=== PATIENT | female | born 1935 | race Caucasian/White ===

== ENCOUNTER → 2020-06-20 13:38 | Outpatient (BNVA) | payer MEDICARE, MEDICAID, SELFPAY | PROVIDERS: PCP Internal Medicine; Referring Provider Internal Medicine; Visit Provider Internal Medicine | DX: J44.9 Chronic obstructive pulmonary disease, unspecified (principal); R09.02 Hypoxemia | CPT/HCPCS: 99213 ==

== ENCOUNTER 2020-08-15 00:25 | Emergency (ER) | payer MEDICARE, MEDICAID, SELFPAY ==
[2020-08-15] VITALS (7 sets, daily range): BP systolic 102–127; BP diastolic 56–92; PULSE 73–80; RESP 16–22; TEMP 37.1; O2SAT 90–100; BMI 26.7
--- NOTE | 2020-08-15 00:40 | ED.SOB ---
HPI - SOB/Dyspnea General Chief Complaint: Abdominal Pain Stated Complaint: diff breathing Time Seen by Provider: 08/15/20 00:39 Source: patient and other ( rehab facility) Mode of arrival: EMS History of Present Illness HPI Narrative: This is an 84-year-old female who is brought in from [facility] for abdominal pain for 3 days, patient is COVID positive and is currently undergoing treatment for that. Patient states she is having a lot of the abdominal pain and as nursing was attempting to check rectal temperature she was noted to have melena. collateral information obtained from the healthcare proxy who states that yesterday patient had a large melanotic stool and was having abdominal pain at that time but refused transportation to the hospital. She states that patient was on DVT prophylaxis with subcutaneous heparin which was discontinued yesterday. Related Data Home Medications Medication Instructions Recorded Confirmed amlodipine 5 mg tablet 5 mg PO DAILY 06/10/20 08/15/20 fluticasone propionate 115 2 puff INHALATION BID 06/10/20 08/15/20 mcg-salmeterol 21 mcg/actuation HFA inhaler levothyroxine 50 mcg tablet 50 mcg PO DAILY 06/10/20 08/15/20 losartan 50 mg tablet 50 mg PO DAILY 06/10/20 08/15/20 mirtazapine 15 mg tablet 15 mg PO BEDTIME 06/10/20 08/15/20 montelukast 10 mg tablet 10 mg PO BEDTIME 06/10/20 08/15/20 Lactobacillus acidophilus 1 cap PO BEDTIME 08/15/20 08/15/20 [Acidophilus] albuterol sulfate 2.5 mg INHALATION Q4H PRN 08/15/20 08/15/20 artificial tears solution 1 drp OPHTHALMIC (EYE) QID PRN 08/15/20 08/15/20 aspirin [Aspirin Child] 81 mg PO DAILY 08/15/20 08/15/20 azithromycin [Zithromax] 250 mg PO DAILY 08/15/20 08/15/20 dexamethasone 6 mg PO DAILY 08/15/20 08/15/20 ipratropium bromide 2.5 ml INHALATION Q4H PRN 08/15/20 08/15/20 ipratropium bromide [Atrovent HFA] 2 puff INHALATION QID PRN 08/15/20 08/15/20 melatonin 3 mg PO BEDTIME PRN 08/15/20 08/15/20 trazodone 25 mg PO Q6H PRN 08/15/20 08/15/20 umeclidinium [Incruse Ellipta] 1 inh INHALATION BEDTIME 08/15/20 08/15/20 Previous Rx's Medication Instructions Recorded hydromorphone (PF) [Dilaudid (PF)] 0.5 mg IM Q4H PRN #12 ml 08/15/20 fxmvonqjeyim-mejqdfgbss-zklnrt 3.375 g IV Q6H 7 Days #1575 ml 08/15/20 [Zosyn in dextrose (iso-osm)] Allergies Allergy/AdvReac Type Severity Reaction Status Date / Time nitrofurantoin Allergy Mild UNKNOWN Unverified 06/01/20 14:39 [Nitrofurantoin] levofloxacin Allergy Unknown UNKNOWN Verified 06/10/20 12:19 codeine AdvReac Mild HEADACHE Unverified 06/01/20 14:39 [From Tylenol-Codeine #3] oxycodone [From Percocet] AdvReac Unknown DIDN'T Verified 06/10/20 12:19 AGREE WITH HER Review of Systems Review of Systems: Yes Unobtainable due to mental condition PMFSH Past Medical History Source: nursing notes reviewed Medical History Bronchitis COPD (chronic obstructive pulmonary disease) Exercise hypoxemia Hypertension TIA (transient ischemic attack) Urinary tract infection Surgical History (Updated 08/15/20 @ 06:08 by Chavo Hilario MD) History of bladder surgery History of cholecystectomy Social History Social History Smoking Status: Former smoker Advance Directives: No Advance Directives Information Provided: Yes Physical Exam Vital Signs: Vital Signs: Last Vital Signs Temp 98.8 F 08/15/20 04:29 Pulse 75 08/15/20 05:03 Resp 18 08/15/20 05:03 BP 121/62 08/15/20 05:03 Pulse Ox 90 L 08/15/20 05:03 Body Mass Index 26.7 VITAL SIGNS: Reviewed. GENERAL: Well developed, well nourished, moderate distress. HEAD: Normocephalic/atraumatic, EYES: PERRLA, EOMI intact without pain, no nystagmus/pallor/icterus noted EARS: Ext canals without abnormality, TMs non-bulging and non-erythematous NOSE: Nares patent bilateral OROPHARYNX: no oral lesions noted, posterior pharynx clear and non-erythematous without noted tonsillar enlargement/erythema/exudates NECK: Supple, no adenopathy LUNGS: tachypnea, decreased breath sounds bilateral, No adventitious sounds. SpO2<95> CARDIOVASCULAR: Regular rate and rhythm without noted murmurs, no JVD or lower extremity edema. ABDOMEN: Soft, distended, pain on palpation with a noted irreducible umbilical hernia without overlying skin changes. peritoneal.No rigidity. Voluntary guarding. No palpable masses MUSCULOSKELETAL: No tenderness, deformities, or effusions noted on gross inspection. EXTREMITIES: No cyanosis, clubbing or edema. SKIN: Inspection of the skin reveals no rashes, ulcerations, jaundice, pallor, or petechiae. NEUROLOGIC: Alert and oriented x 2. Strength and sensation to light touch were grossly intact x 4. Course Course Course Narrative: This is an 84-year-old female with history and clinical presentation most concerning for likely upper GI bleed and due to abdominal exam suspect either perforation or strangulated hernia. On review of all investigations significant leukocytosis in addition to CT scan findings of free air with free fluid suspected to be associated with possible duodenal / gastric ulcer perforation. Patient received blood cultures, lactic acid, and IV antibiotics, IV fluids. Discussion was held consistently with daughter as well as with patient on decision making regarding interventions as documented below. The final decision was that patient would receive comfort care at the facility. Patient will be discharged with antibiotics as well as pain medication. Reevaluation(s) Reevaluation #1: Left message with daughter, Makenzie Villarreal. Time: 01:00 Reevaluation #2: Makenzie Villarreal called back and confirms abdominal pain, ?dementia. She does not have any further information and is referring us to Nickie Gracia (the other daughter). Time: 01:05 Reevaluation #3: Nickie Gracia called back. Patient was told she was not a surgical candidate regarding the hernia. Just had heparin (DVT prophylaxis) discontinued yesterday after a huge, black stool. She confirms patient is a DNR/DNI. Patient refused hospital yesterday. Time: 01:25 Additional Reevaluation(s): 0415: Your radiology called to report small amount of free air with trace free fluid in Martinez's pouch appears to be concerning for possible duodenum /gastric perforation. This would explain the melena as well. 0425: Patient unsure of what to do and requested that I discuss with her daughter who then recommends that surgery should not be pursued as there is low likelihood of her being able to survive the procedure. However, daughter would like me to inform her mother what her recommendations are but then also ask her how she would like to proceed.Patient states she wants to do anything to live and not be in pain. 0435: I discussed case with Dr. Hilario who will be coming into the hospital to speak with the family as well as the patient. In the meantime 2 units of PRBCs was ordered. MDM - SOB/Dyspnea Lab Data Result diagrams: 08/15/20 01:00 08/15/20 01:00 Labs: Lab Results 08/15/20 08/15/20 08/15/20 Range/Units 01:00 01:00 01:00 WBC 25.0 H (4.8-10.8) X10*3/uL RBC 2.58 L (4.20-5.50) X10*6/uL Hgb 8.4 L (12.0-16.0) g/dl Hct 25.0 L (37-47) % MCV 96.9 (80-98) fL MCH 32.6 (27.0-33.0) pg MCHC 33.6 (31.0-35.0) g/dl RDW 13.2 (11.0-16.0) % Plt Count 318 (160-400) X10*3/uL MPV 10.0 (9.4-12.3) fL Immature Gran % (Auto) Cancelled Neut % (Auto) Cancelled Lymph % (Auto) Cancelled [place] % (Auto) Cancelled Eos % (Auto) Cancelled Baso % (Auto) Cancelled Lymph # (Auto) Cancelled [place] # (Auto) Cancelled Eos # (Auto) Cancelled Baso # (Auto) Cancelled Abs Immat Gran (auto) Cancelled Absolute Neuts (auto) Cancelled Absolute Nucleated RBC 0.340 H (0.0-0.012) X10*3/uL Nucleated RBC % (auto) 1.4 H (0.0-0.2) /100WBC Neutrophils % (Manual) 89 H (45-73) % Band Neutrophils % 1 L (3-5) % Lymphocytes % (Manual) 3 L (20-40) % Metamyelocytes % 1 % Myelocytes % 3 % Promyelocytes % 3 % Abs Neuts (Manual) 22.5 H (2.2-7.9) X10*3/uL Lymphocytes # (Manual) 0.8 (0.6-4.8) X10*3/uL Metamyelocytes # 0.3 X10*3/uL Myelocytes # 0.8 X10*/uL Promyelocytes # 0.8 X10*3/uL Nucleated RBCs 3 H (0-0) /100WBC Platelet Estimate NORMAL (NORMAL) Large Platelets PRESENT Plt Morphology Comment NORMAL RBC Morphology NOTED Polychromasia 1+ Hypochromasia 1+ Acanthocytes (Spur) 1+ PT 12.4 (10.8-13.0) SEC INR 1.0 (0.9-1.1) APTT 18.7 L (24.1-38.0) SEC Sodium 135 (135-145) mmol/L Potassium 5.2 H (3.3-5.1) mmol/l Chloride 102 (96-108) mmol/L Carbon Dioxide 22 (22-29) mmol/L Anion Gap 16 (12-20) BUN 85 H* (9-16) mg/dL Creatinine 1.30 (0.5-1.4) mg/dL Estim Creat Clear Calc 32.2 Estimated GFR 39 Random Glucose 157 H (60-115) mg/dL Lactic Acid (0.5-2.0) mmol/L Calcium 7.3 L (8.4-10.2) mg/dL Total Bilirubin 0.8 (0.0-1.0) mg/dL AST 23 (5-31) U/L ALT 29 (0-31) U/L Alkaline Phosphatase 61 (39-117) U/L Total Protein 5.3 L (6.5-8.0) g/dL Albumin 3.1 L (3.5-5.0) g/dL Urine Color Urine Appearance Urine pH (5.0-8.0) Ur Specific [place] (1.005-1.025) Urine Protein (NEG-TRACE) MG/DL Urine Glucose (UA) (NEG) MG/DL Urine Ketones (NEG) MG/DL Urine Blood (NEG) Urine Nitrite (NEG) Ur Leukocyte Esterase (NEG) Stool Occult Blood (NEG) Blood Type Antibody Screen Crossmatch 08/15/20 08/15/20 08/15/20 Range/Units 01:01 01:01 01:07 WBC (4.8-10.8) X10*3/uL RBC (4.20-5.50) X10*6/uL Hgb (12.0-16.0) g/dl Hct (37-47) % MCV (80-98) fL MCH (27.0-33.0) pg MCHC (31.0-35.0) g/dl RDW (11.0-16.0) % Plt Count (160-400) X10*3/uL MPV (9.4-12.3) fL Immature Gran % (Auto) Neut % (Auto) Lymph % (Auto) [place] % (Auto) Eos % (Auto) Baso % (Auto) Lymph # (Auto) [place] # (Auto) Eos # (Auto) Baso # (Auto) Abs Immat Gran (auto) Absolute Neuts (auto) Absolute Nucleated RBC (0.0-0.012) X10*3/uL Nucleated RBC % (auto) (0.0-0.2) /100WBC Neutrophils % (Manual) (45-73) % Band Neutrophils % (3-5) % Lymphocytes % (Manual) (20-40) % Metamyelocytes % % Myelocytes % % Promyelocytes % % Abs Neuts (Manual) (2.2-7.9) X10*3/uL Lymphocytes # (Manual) (0.6-4.8) X10*3/uL Metamyelocytes # X10*3/uL Myelocytes # X10*/uL Promyelocytes # X10*3/uL Nucleated RBCs (0-0) /100WBC Platelet Estimate (NORMAL) Large Platelets Plt Morphology Comment RBC Morphology Polychromasia Hypochromasia Acanthocytes (Spur) PT (10.8-13.0) SEC INR (0.9-1.1) APTT (24.1-38.0) SEC Sodium (135-145) mmol/L Potassium (3.3-5.1) mmol/l Chloride (96-108) mmol/L Carbon Dioxide (22-29) mmol/L Anion Gap (12-20) BUN (9-16) mg/dL Creatinine (0.5-1.4) mg/dL Estim Creat Clear Calc Estimated GFR Random Glucose (60-115) mg/dL Lactic Acid 2.0 (0.5-2.0) mmol/L Calcium (8.4-10.2) mg/dL Total Bilirubin (0.0-1.0) mg/dL AST (5-31) U/L ALT (0-31) U/L Alkaline Phosphatase (39-117) U/L Total Protein (6.5-8.0) g/dL Albumin (3.5-5.0) g/dL Urine Color Urine Appearance Urine pH (5.0-8.0) Ur Specific Fitzgerald (1.005-1.025) Urine Protein (NEG-TRACE) MG/DL Urine Glucose (UA) (NEG) MG/DL Urine Ketones (NEG) MG/DL Urine Blood (NEG) Urine Nitrite (NEG) Ur Leukocyte Esterase (NEG) Stool Occult Blood POS (NEG) Blood Type AB Positive Antibody Screen NEGATIVE Crossmatch See Detail 08/15/20 Range/Units 04:37 WBC (4.8-10.8) X10*3/uL RBC (4.20-5.50) X10*6/uL Hgb (12.0-16.0) g/dl Hct (37-47) % MCV (80-98) fL MCH (27.0-33.0) pg MCHC (31.0-35.0) g/dl RDW (11.0-16.0) % Plt Count (160-400) X10*3/uL MPV (9.4-12.3) fL Immature Gran % (Auto) Neut % (Auto) Lymph % (Auto) [place] % (Auto) Eos % (Auto) Baso % (Auto) Lymph # (Auto) [place] # (Auto) Eos # (Auto) Baso # (Auto) Abs Immat Gran (auto) Absolute Neuts (auto) Absolute Nucleated RBC (0.0-0.012) X10*3/uL Nucleated RBC % (auto) (0.0-0.2) /100WBC Neutrophils % (Manual) (45-73) % Band Neutrophils % (3-5) % Lymphocytes % (Manual) (20-40) % Metamyelocytes % % Myelocytes % % Promyelocytes % % Abs Neuts (Manual) (2.2-7.9) X10*3/uL Lymphocytes # (Manual) (0.6-4.8) X10*3/uL Metamyelocytes # X10*3/uL Myelocytes # X10*/uL Promyelocytes # X10*3/uL Nucleated RBCs (0-0) /100WBC Platelet Estimate (NORMAL) Large Platelets Plt Morphology Comment RBC Morphology Polychromasia Hypochromasia Acanthocytes (Spur) PT (10.8-13.0) SEC INR (0.9-1.1) APTT (24.1-38.0) SEC Sodium (135-145) mmol/L Potassium (3.3-5.1) mmol/l Chloride (96-108) mmol/L Carbon Dioxide (22-29) mmol/L Anion Gap (12-20) BUN (9-16) mg/dL Creatinine (0.5-1.4) mg/dL Estim Creat Clear Calc Estimated GFR Random Glucose (60-115) mg/dL Lactic Acid (0.5-2.0) mmol/L Calcium (8.4-10.2) mg/dL Total Bilirubin (0.0-1.0) mg/dL AST (5-31) U/L ALT (0-31) U/L Alkaline Phosphatase (39-117) U/L Total Protein (6.5-8.0) g/dL Albumin (3.5-5.0) g/dL Urine Color YELLOW Urine Appearance CLEAR Urine pH 7.0 (5.0-8.0) Ur Specific [place] 1.010 (1.005-1.025) Urine Protein NEG (NEG-TRACE) MG/DL Urine Glucose (UA) NEG (NEG) MG/DL Urine Ketones NEG (NEG) MG/DL Urine Blood NEG (NEG) Urine Nitrite NEG (NEG) Ur Leukocyte Esterase NEG (NEG) Stool Occult Blood (NEG) Blood Type Antibody Screen Crossmatch Discharge Plan Discharge Clinical Impression: Perforation bowel, Severe sepsis, Need for comfort care Patient Disposition: Xfer [facility] Prescriptions: New Zosyn in dextrose (iso-osm) 3.375 gram/50 mL piggyback 3.375 g IV Q6H 7 Days Qty: 1575 RF: 0 Dilaudid (PF) 0.5 mg/0.5 mL syringe 0.5 mg IM Q4H PRN (Reason: pain) Qty: 12 RF: 0 No Action albuterol sulfate 2.5 mg /3 mL (0.083 %) solution for nebulization 2.5 mg inhalation Q4H PRN (Reason: Wheezing) RF: 0 azithromycin [Zithromax] 250 mg Tablet 250 mg PO DAILY RF: 0 dexamethasone 6 mg Tablet 6 mg PO DAILY RF: 0 artificial tears solution Drops 1 drp OPHTHALMIC (EYE) QID PRN (Reason: Dry Eye(S)) RF: 0 melatonin 3 mg Tablet 3 mg PO BEDTIME PRN (Reason: Insomnia) RF: 0 aspirin [Aspirin Child] 81 mg Tablet,Chewable 81 mg PO DAILY RF: 0 Lactobacillus acidophilus [Acidophilus] Capsule 1 cap PO BEDTIME RF: 0 ipratropium bromide 0.02 % Solution 2.5 ml INHALATION Q4H PRN (Reason: Shortness Of Breath Or Wheezing) RF: 0 Atrovent HFA 17 mcg/actuation Hfa Aerosol Inhaler 2 puff INHALATION QID PRN (Reason: Shortness Of Breath Or Wheezing) RF: 0 Incruse Ellipta 62.5 mcg/actuation Blister With Device 1 inh INHALATION BEDTIME RF: 0 trazodone 50 mg Tablet 25 mg PO Q6H PRN (Reason: Agitation) RF: 0 levothyroxine 50 mcg tablet 50 mcg PO DAILY RF: 0 montelukast 10 mg tablet 10 mg PO BEDTIME RF: 0 losartan 50 mg tablet 50 mg PO DAILY RF: 0 mirtazapine 15 mg tablet 15 mg PO BEDTIME RF: 0 amlodipine 5 mg tablet 5 mg PO DAILY RF: 0 Advair HFA 115-21 mcg/actuation HFA aerosol inhaler 2 puff inhalation BID RF: 0 Referrals: Physician,Unknown [Primary Care Provider] - 2 days
--- NOTE | 2020-08-15 00:41 | XR_ITS ---
EXAMINATION: XR CHEST CLINICAL INFORMATION: Shortness of breath COMPARISON: 06/11/2016 TECHNIQUE: Frontal view of the chest was obtained. FINDINGS: Lungs are hyperinflated, suggesting underlying COPD. No focal consolidation is seen. There is nonspecific interstitial prominence at the left lung base which could reflect a degree of underlying chronic lung disease. No evidence of pneumothorax, significant pleural effusion, or overt pulmonary edema. Cardiac size is within normal limits. Calcification is present at the aortic arch. No acute osseous findings are seen. XR/XR chest 1V IMPRESSION: No definite acute findings identified. Suggestion of chronic lung disease.
[2020-08-15] MEDS: Pantoprazole Sodium 40 MG/10 ML VIAL 80 MG IVPUSH (01:16)
[2020-08-15 01:17] LABS: Hemoglobin 8.4 g/dl (12.0-16.0); Mean Corpuscular HGB Conc 33.6 g/dl (31.0-35.0); Mean Corpuscular Hemoglobin 32.6 pg (27.0-33.0); Mean Corpuscular Volume 96.9 fL (80-98); Platelet Count 318 X10*3/uL (160-400); Red Blood Count 2.58 X10*6/uL (4.20-5.50); Red Cell Distribution Width 13.2 % (11.0-16.0)
[2020-08-15 01:24] LABS: OBS Int Ctl Valid YES; OBS1 POS (NEG)
[2020-08-15 01:27] LABS: NRBC Pct Auto 1.4 /100WBC (0.0-0.2)
--- NOTE | 2020-08-15 01:34 | PC.NURSE ---
PT TO ROOM VIA AMBULANCE WITH C/O ABD PAIN WHICH STARTED ON &OFF X 3 DAYS. PT TESTED + FOR COVID X 14 DAYS AGO. PT C/O DYSPNEA. PT STATES I JUST CAN'T BREATHE. PT REPOSITIONED, CLEANED UP AND MD AT BEDSIDE WITH PT.
--- NOTE | 2020-08-15 01:37 | PC.NURSE ---
IV PLACED TO RIGHT WRIST AND LEFT HAND. PT ON 3L NC WITH PO 87%. PT ON NRB AT THIS TIME PER MD'S ORDERS. LABS DRAWN TO LAB ALONG WITH BC X 2. PT MEDICATED PER EMAR. PT C/O ABD PAIN, MD AWARE.
[2020-08-15 01:45] LABS: Alanine Aminotransferase 29 U/L (0-31); Albumin Level 3.1 g/dL (3.5-5.0); Alkaline Phosphatase 61 U/L (39-117); Anion Gap 16 (12-20); Aspartate Amino Transferase 23 U/L (5-31); Bilirubin Total 0.8 mg/dL (0.0-1.0); Blood Urea Nitrogen 85 mg/dL (9-16); Calcium 7.3 mg/dL (8.4-10.2); Carbon Dioxide 22 mmol/L (22-29); Chloride 102 mmol/L (96-108); Creatinine Clr Calc Pharmacy 32.2; Estimated Glomerular Filt Rate 39; Glucose Random 157 mg/dL (60-115); Potassium 5.2 mmol/l (3.3-5.1); Sodium 135 mmol/L (135-145); Total Protein 5.3 g/dL (6.5-8.0)
[2020-08-15] MEDS: cefTRIAXone sodium 1 GM in 0.9 % Sodium Chloride 50 ML IV (01:50)
--- NOTE | 2020-08-15 02:10 | CT_ITS ---
EXAMINATION: CT ABDOMEN AND PELVIS WITH CONTRAST CLINICAL INFORMATION: Abdominal pain, question strangulated hernia COMPARISON: 07/01/2016 TECHNIQUE: Multidetector volumetric images were obtained from the superior aspect of the liver through the pubic symphysis following administration 85 mL of Omnipaque 350 intravenous contrast. Sagittal and coronal reformatted images were obtained on the technologist's workstation. Oral contrast: No This CT examination was performed using dose optimization techniques as appropriate, variously including the following: *Automated exposure control *Adjustment of mA and/or kV according to patient size (this includes techniques or standardized protocols for targeted exams where dose is matched to indication/reason for exam; i.e. extremities or head) *Use of iterative reconstruction technique DLP: 980 mGy-cm FINDINGS: LUNG BASES: Trace pleural effusions. Emphysema at the right lung base. Coronary artery calcifications are present. LIVER, GALLBLADDER, AND BILIARY TREE: The liver is normal in size, shape, and attenuation. No focal hepatic lesion or biliary ductal dilatation is present. Patient is status post cholecystectomy. Trace perihepatic ascites. PANCREAS: There is partial fatty atrophy of the pancreas. SPLEEN: Unremarkable. ADRENAL GLANDS: Unremarkable. KIDNEYS AND URETERS: The kidneys are normal in size, shape, and attenuation. Several hypoattenuating renal lesions are present bilaterally, favoring cysts measuring up to approximately 1.7 cm in diameter. No hydronephrosis, hydroureter, or obstructing calculi seen. No perinephric stranding. BLADDER: Unremarkable. GASTROINTESTINAL TRACT: Multiple foci of intra-abdominal free air are noted, mostly in the upper abdomen, consistent with perforated viscus. Stranding is noted adjacent to the second portion of the duodenum, which has a somewhat thick-walled appearance. There is colonic diverticulosis without diverticulitis. No evidence of bowel obstruction. The appendix is unremarkable. ABDOMINAL WALL: Fat-containing periumbilical hernias noted. LYMPH NODES: Normal. VASCULAR: There are atherosclerotic calcifications along the aorta and common iliac arteries. PELVIC VISCERA: Unremarkable. OSSEOUS STRUCTURES: Degenerative changes are noted in the spine. CT/CT abdomen pelvis w con IMPRESSION: 1. Multiple foci of intra-abdominal free air in the upper abdomen, consistent with perforated viscus. This could be duodenal in origin given the presence of some stranding/inflammatory change along the second portion of the duodenum. Perforated gastric ulcer is also a possibility. 2. Trace perihepatic ascites. 3. Trace pleural effusions. 4. Colonic diverticulosis without convincing diverticulitis. This critical result was discussed with Dr. Ochoa on 08/15/2020 4:12 AM, and it was ascertained that the content and urgency of the report was understood at the time of direct communication.
[2020-08-15] MEDS: metroNIDAZOLE/NS 500 MG/100 ML PIGGYBACK 100 MG IV (02:30)
[2020-08-15] MEDS: fentaNYL citrate/PF 100 MCG/2 ML VIAL 25 MCG IVPUSH ×2 (02:53→04:57)
[2020-08-15 03:17] LABS: Band Neutrophils Percent 1 % (3-5); Lymphocytes Absolute Manual 0.8 X10*3/uL (0.6-4.8); Lymphocytes Percent Manual 3 % (20-40); Metamyelocytes Absolute 0.3 X10*3/uL; Metamyelocytes Percent 1 %; Myelocytes Absolute 0.8 X10*/uL; Myelocytes Percent 3 %; Neutrophils Absolute Manual 22.5 X10*3/uL (2.2-7.9); Neutrophils Percent Manual 89 % (45-73); Nucleated Red Blood Cells 3 /100WBC (0-0); Promyelocytes Absolute 0.8 X10*3/uL; Promyelocytes Percent 3 %
[2020-08-15 03:18] LABS: Polychromasia 1+
[2020-08-15 03:19] LABS: Large Platelet PRESENT; Platelet Estimate NORMAL (NORMAL); Platelet Morphology Comment NORMAL
[2020-08-15 03:20] LABS: Acanthocytes 1+; Hypochromasia 1+
[2020-08-15 03:40] LABS: RBC Morphology NOTED
--- NOTE | 2020-08-15 03:42 | PC.NURSE ---
portable x-ray in room, pt to ct in stretcher. pt tolerated well.
[2020-08-15] MEDS: iohexoL 350 MG/ML 100 ML INFUS..BTL 85 ML IV (03:46)
--- NOTE | 2020-08-15 04:00 | PC.NURSE ---
PT REPOSITIONED. PT REMAINS ON MONITOR WITH HR 76. PT C/O MID TO LOWER ABD PAIN. MD AWARE. PT DETERMINED TO CONTINUE TO LAY ON HER SIDE. PT UNABLE TO LAY ON HER BACK D/T PAIN. PT ON 4L NC WITH PO RANGING FROM 88%-90%. SPEAKING WITH FAMILY ON PHONE FOR UPDATE. WILL CONTINUE TO MONITOR PT.
--- NOTE | 2020-08-15 04:05 | PC.NURSE ---
PT RESTLESS IN STRETCHER AND C/O PAIN, PT RETURNS TO NRB WITH PO 99% PER MD'S REQUEST. PT REPOSITIONED. WILL CONTINUE TO MONITOR PT.
[2020-08-15] MEDS: 0.9 % Sodium Chloride 1,000 ML 1000 ML IV (04:10)
[2020-08-15 04:46] LABS: Prothrombin Time 12.4 SEC (10.8-13.0)
[2020-08-15 04:46] LABS: Appearance Urine CLEAR; Glucose Urine UA NEG (NEG); Leukocyte Esterase Urine NEG (NEG); Nitrite Urine NEG (NEG); Urine Blood NEG (NEG); Urine Ketones NEG (NEG); Urine Protein NEG (NEG-TRACE)
[2020-08-15 04:47] LABS: Color Urine YELLOW
[2020-08-15 04:52] LABS: Partial Thromboplastin Time 18.7 SEC (24.1-38.0)
--- NOTE | 2020-08-15 05:01 | PC.NURSE ---
JAMES 16F INSERTED W/O DIFFICULTY, SAMPLE SENT TO LAB FOR EVAL. PT C/O PAIN. PT MEDICATED PER EMAR.
[2020-08-15] MEDS: HYDROmorphone HCl 0.5 MG/0.5 ML SYRINGE IVPUSH (05:48)
--- NOTE | 2020-08-15 05:59 | P.CONGS_ITS ---
History of Present Illness Consult details Consult date: 08/15/20 Narrative: 84F with mulitple medical problems including dementia, COPD, brought to the ED early this morning because of melanotic stools and abdominal pain. The patient some simple questions and says she has been having abdominal pain. According to the ED staff, the patient was noted to pass very dark stools in large amounts yesterday. She lives in a SNF and refused to be trasnferred to the ED yesterday. She was brought this morning for complaints of abdominal pain. There is no documented vomitting. The patient has been in a SNF for many years now because of declining health. She requires assistance with activities of daily living, and according to the daughter, has been worsening with regards to overall health with progressive weakness. A CT scan was done showing small amounts of free air in the upper abdomen. I was therefore consulted. She had been diagnosed to be COVID positive last . Review of Systems Constitutional: Constitutional: Reports poor appetite Cardiovascular: Cardiovascular: Reports dyspnea Respiratory: Respiratory: Reports cough and Reports dyspnea Gastrointestinal: Gastrointestinal: Reports abdominal pain and Reports melena Neurologic: Reports memory loss Psychiatric: Psychiatric: Reports memory loss [facility] Past Medical History Medical History (Updated 08/15/20 @ 06:12 by Chavo Hilario MD) Bronchitis COPD (chronic obstructive pulmonary disease) COVID-19 Exercise hypoxemia Hypertension Perforated viscus TIA (transient ischemic attack) Urinary tract infection Vascular dementia Surgical History Surgical History History of bladder surgery History of cholecystectomy Social History Social History Smoking Status: Former smoker Advance Directives: No Advance Directives Information Provided: Yes Meds Allergies Allergy/AdvReac Type Severity Reaction Status Date / Time nitrofurantoin Allergy Mild UNKNOWN Unverified 06/01/20 14:39 [Nitrofurantoin] levofloxacin Allergy Unknown UNKNOWN Verified 06/10/20 12:19 codeine AdvReac Mild HEADACHE Unverified 06/01/20 14:39 [From Tylenol-Codeine #3] oxycodone [From Percocet] AdvReac Unknown DIDN'T Verified 06/10/20 12:19 AGREE WITH HER Home Medications Medication Instructions Recorded Confirmed Type amlodipine 5 mg tablet 5 mg PO DAILY 06/10/20 08/15/20 History fluticasone propionate 115 2 puff INHALATION BID 06/10/20 08/15/20 History mcg-salmeterol 21 mcg/actuation HFA inhaler levothyroxine 50 mcg tablet 50 mcg PO DAILY 06/10/20 08/15/20 History losartan 50 mg tablet 50 mg PO DAILY 06/10/20 08/15/20 History mirtazapine 15 mg tablet 15 mg PO BEDTIME 06/10/20 08/15/20 History montelukast 10 mg tablet 10 mg PO BEDTIME 06/10/20 08/15/20 History Lactobacillus acidophilus 1 cap PO BEDTIME 08/15/20 08/15/20 History [Acidophilus] albuterol sulfate 2.5 mg INHALATION Q4H PRN 08/15/20 08/15/20 History artificial tears solution 1 drp OPHTHALMIC (EYE) QID PRN 08/15/20 08/15/20 History aspirin [Aspirin Child] 81 mg PO DAILY 08/15/20 08/15/20 History azithromycin [Zithromax] 250 mg PO DAILY 08/15/20 08/15/20 History dexamethasone 6 mg PO DAILY 08/15/20 08/15/20 History ipratropium bromide 2.5 ml INHALATION Q4H PRN 08/15/20 08/15/20 History ipratropium bromide [Atrovent HFA] 2 puff INHALATION QID PRN 08/15/20 08/15/20 History melatonin 3 mg PO BEDTIME PRN 08/15/20 08/15/20 History trazodone 25 mg PO Q6H PRN 08/15/20 08/15/20 History umeclidinium [Incruse Ellipta] 1 inh INHALATION BEDTIME 08/15/20 08/15/20 History Physical Exam Vital Signs: Vital Signs: Last Vital Signs Temp 98.8 F 08/15/20 04:29 Pulse 75 08/15/20 05:03 Resp 18 08/15/20 05:03 BP 121/62 08/15/20 05:03 Pulse Ox 90 L 08/15/20 05:03 Body Mass Index 26.7 Const: Other: appears significantly short of breath, requiring a mask for O2 Resp: Effort & Inspection: respiratory distress Cardio: Rate: tachycardic Rhythm: regular rhythm GI: Other: diffusely tender with guarding and rebound Results Labs Result diagrams: 08/15/20 01:00 08/15/20 01:00 Labs: Abnormal lab results 08/15/20 08/15/20 08/15/20 Range/Units 01:00 01:00 01:00 WBC 25.0 H (4.8-10.8) X10*3/uL RBC 2.58 L (4.20-5.50) X10*6/uL Hgb 8.4 L (12.0-16.0) g/dl Hct 25.0 L (37-47) % Absolute Nucleated RBC 0.340 H (0.0-0.012) X10*3/uL Nucleated RBC % (auto) 1.4 H (0.0-0.2) /100WBC Neutrophils % (Manual) 89 H (45-73) % Band Neutrophils % 1 L (3-5) % Lymphocytes % (Manual) 3 L (20-40) % Abs Neuts (Manual) 22.5 H (2.2-7.9) X10*3/uL Nucleated RBCs 3 H (0-0) /100WBC APTT 18.7 L (24.1-38.0) SEC Potassium 5.2 H (3.3-5.1) mmol/l BUN 85 H* (9-16) mg/dL Random Glucose 157 H (60-115) mg/dL Calcium 7.3 L (8.4-10.2) mg/dL Total Protein 5.3 L (6.5-8.0) g/dL Albumin 3.1 L (3.5-5.0) g/dL Crossmatch 08/15/20 Range/Units 01:01 WBC (4.8-10.8) X10*3/uL RBC (4.20-5.50) X10*6/uL Hgb (12.0-16.0) g/dl Hct (37-47) % Absolute Nucleated RBC (0.0-0.012) X10*3/uL Nucleated RBC % (auto) (0.0-0.2) /100WBC Neutrophils % (Manual) (45-73) % Band Neutrophils % (3-5) % Lymphocytes % (Manual) (20-40) % Abs Neuts (Manual) (2.2-7.9) X10*3/uL Nucleated RBCs (0-0) /100WBC APTT (24.1-38.0) SEC Potassium (3.3-5.1) mmol/l BUN (9-16) mg/dL Random Glucose (60-115) mg/dL Calcium (8.4-10.2) mg/dL Total Protein (6.5-8.0) g/dL Albumin (3.5-5.0) g/dL Crossmatch See Detail Short CBC 08/15/20 Range/Units 01:00 WBC 25.0 H (4.8-10.8) X10*3/uL Hgb 8.4 L (12.0-16.0) g/dl Hct 25.0 L (37-47) % Plt Count 318 (160-400) X10*3/uL BMP 08/15/20 01:00 Sodium 135 Potassium 5.2 H Chloride 102 Carbon Dioxide 22 BUN 85 H* Creatinine 1.30 Calcium 7.3 L Liver Function 08/15/20 Range/Units 01:00 Total Bilirubin 0.8 (0.0-1.0) mg/dL AST 23 (5-31) U/L ALT 29 (0-31) U/L Alkaline Phosphatase 61 (39-117) U/L Albumin 3.1 L (3.5-5.0) g/dL Urine 08/15/20 Range/Units 04:37 Urine Color YELLOW Urine Appearance CLEAR Urine pH 7.0 (5.0-8.0) Ur Specific [place] 1.010 (1.005-1.025) Urine Protein NEG (NEG-TRACE) MG/DL Urine Glucose (UA) NEG (NEG) MG/DL All other labs normal. Assessment and Plan (1) Perforated viscus: Status: Acute (2) Perforated viscus: Status: Acute Review of her CT scan shows small amounts of free air in the upper abdome n, with some thickening of the duodenal wall. Overall picture suggests a perofrated duodenal ulcer. I had a long discussion with her HCP Nickie Gracia at [phone]. I explained to her the option of proceeding with laparotomy with possible omental patching, possible bowel resection. I explained to her the risks including but not limited to bleeding, infections, leak from repair site, OH, respiratory failure requiring a tracheostomy, OH, and . I explained the benefits of repairing the perforation. Unfortunately, the pt does present with multiple medical problems, including COPD, overal frail health and poor baseline health. The daughter Nickie does not want her to proceed with surgery. She wants the patient transferred back to the SNF. The daughter is the head of the facility and says the pt can be given IV morphine, IVF and IV abx at the SNF. She is aware that in the next few days is the likely outcome even if there is a small chance that the perforation may seal up without surgical intervention. The patient does have a DNR/DNI/no artificial feeding orders in effect on record.
--- NOTE | 2020-08-15 06:05 | PC.NURSE ---
pt rating mid abd pain 10/10. pt medicated as per emar for pain. Dr. Hilario in room for eval.
--- NOTE | 2020-08-15 06:22 | PC.NURSE ---
PT IS BEING D/C BACK TO [facility] FOR COMFORT MEASURES PER MD'S ORDERS.
--- NOTE | 2020-08-15 06:36 | PC.NURSE ---
REPORT GIVEN TO TAMMY KAHN AT [facility]. PT BEING DISCHARGED FROM HERE TO RETURN TO [place]. REPORT GIVEN TO FEMI AT [facility]. PT IS BEING D/C'D WITH NRB AND PRESCRIPTIONS GIVEN TO EMS STAFF. FAMILY UPDATED BY .
--- NOTE | 2020-08-15 08:00 | ECG_ITS ---
Test Reason : ABD PAIN Blood Pressure : / mmHG Vent. Rate : 075 BPM Atrial Rate : 075 BPM P-R Int : 146 ms QRS Dur : 070 ms QT Int : 408 ms P-R-T Axes : 107 096 069 degrees QTc Int : 455 ms Suspect limb lead reversal, interpretation assumes no reversal Normal sinus rhythm with sinus arrhythmia Rightward axis ST & T wave abnormality, consider anterior ischemia Abnormal ECG When compared with ECG of 11-JUN-2016 17:55, T wave inversion now evident in Anterior leads Referred By: Kaylee Ochoa Electronically Signed By:SUZIE FRANCISCO MD
--- NOTE | 2020-08-15 08:10 | PC.NURSE ---
PT IS AWAKE AND OFFERED PO FLUIDS SHE IS VERY ANXIOUS ABOUT RETURNING TO [facility]HAB SHE WAS REPOSITIONED AND REPORT WAS GIVEN TO EMS IV ACCESS AND JAMES WERE REMOVED
--- NOTE | 2020-08-15 08:20 | PC.NURSE ---
PT IN ROUTE BACK TO [facility]
== END 2020-08-15 08:19 | disposition skilled nursing facility (03) ==
PROVIDERS: Emergency Provider Student in an Organized Health Care Education/Training Program
DX: A41.9 Sepsis, unspecified organism (principal); K63.1 Perforation of intestine (nontraumatic); R65.20 Severe sepsis without septic shock; I10 Essential (primary) hypertension; F01.50 Vascular dementia, unspecified severity, without behavioral disturbance, psychotic disturbance, mood disturbance, and anxiety; J44.9 Chronic obstructive pulmonary disease, unspecified; Z86.73 Personal history of transient ischemic attack (TIA), and cerebral infarction without residual deficits; Z79.82 Long term (current) use of aspirin; Z79.899 Other long term (current) drug therapy; Z51.5 Encounter for palliative care; Z66 Do not resuscitate; Z86.19 Personal history of other infectious and parasitic diseases
CPT/HCPCS: 36415; 71045; 74177; 80053; 81003; 82272; 83605; 85007; 85025; 85027; 85060; 85610; 85730; 86850; 86900; 86901; 86920; 86923; 87040; 93005; 96361; 96365; 96367; 96375; 96376; 99284; 99285; J0696; J1170; J3010; Q9967